=== PATIENT | female | born 1980 | race Caucasian/White ===

== ENCOUNTER → 2017-11-12 | Outpatient (CLI) | payer OTHER ==
--- NOTE | 2017-11-23 11:16 | MR ---
EXAMINATION TYPE: MR brain wo con DATE OF EXAM: 11/12/2017 COMPARISON: Prior outside MRI brain October 11, 2013 HISTORY: Patient has hx of vestibular schwannoma, increased vertigo TECHNIQUE: Multiplanar, multisequence imaging of the brain and brainstem is performed without IV cont rast. Dedicated IAC imaging is also performed. FINDINGS: Diffusion weighted images demonstrate no evidence of a recent infarct or other diffusion abnormality. There is no extraaxial fluid collection or significant white matter signal abnormality. The ventricu lar system and cisternal spaces are normal in size and appearance. The brain volume is age appropria te. Midline structures demonstrate normal morphology. The craniocervical junction appears within normal limits. Normal vascular flow voids are present. Nasal septum remains deviated to right of midline. Th e paranasal sinuses are clear. The globes are intact bilaterally. No suspicious fluid signal seen in mastoid air cells bilaterally. Vestibulocochlear complexes show sl ight asymmetry involving the left vestibular portion included semicircular canals, this is at site of prior enhancing neoplasm. Suspect interval surgical resection. Subtle increased FLAIR signal in the vestibular portion is noted axial image 8 less well seen on dedicated IAC imaging. IMPRESSION: Suboptimal study without IV contrast. Advise repeat imaging with IV contrast to rule out recurrent enhancing schwannoma or neoplasm.
== END | disposition home or self-care (01) ==
LOC: RADMRIMAIN 09:40 → MERGE 09:45
PROVIDERS: ATTEND Family Medicine
DX: D33.3 Benign neoplasm of cranial nerves (principal)
CPT/HCPCS: 70551

== ENCOUNTER → 2019-04-04 | Outpatient (CLI) | payer OTHER ==
--- NOTE | 2019-04-21 14:06 | MM ---
Reason for exam: screening (asymptomatic). Last mammogram was performed 4 years and 2 months ago. History: Family history of breast cancer in maternal grandmother. Took hormonal contraceptives for 6 years. Physical Findings: A clinical breast exam by your physician is recommended on an annual basis and results should be correlated with mammographic findings. MG Screening Mammo w CAD Bilateral CC and MLO view(s) were taken. Prior study comparison: January 29, 2015, mammogram, performed at [facility]. The breast tissue is heterogeneously dense. This may lower the sensitivity of mammography. There is chronic nodularity in the right upper aspect. There is no discrete abnormality. ASSESSMENT: Negative, BI-RAD 1 RECOMMENDATION: Routine screening mammogram of both breasts in 1 year.
== END | disposition home or self-care (01) ==
LOC: RADMAMWWP 08:22
PROVIDERS: ATTEND Family Medicine
DX: Z12.31 Encounter for screening mammogram for malignant neoplasm of breast (principal)
CPT/HCPCS: 77067

== ENCOUNTER 2020-02-24 11:53 | Emergency (ER) | payer OTHER ==
[2020-02-24 12:06] VITALS: BP 122/77; PULSE 72; RESP 18; TEMP 98.8
--- NOTE | 2020-02-24 12:33 | ED ---
General Adult HPI - General Chief complaint: Upper Respiratory Infection Stated complaint: chest heaviness/headaches Time Seen by Provider: 02/24/20 12:16 Source: patient Mode of arrival: ambulatory Limitations: no limitations - History of Present Illness Initial comments: Patient is a 39-year-old female presenting to the emergency department with chief complaint of some shortness of breath. Patient states this started yesterday after she was exposed to a Covid-positive patient 2 days ago. Patient reports this likely is c covid-19d. Patient states she is under quarantine. She is also asthmatic and does take Advair daily along with albuterol inhaler when necessary. She is also reporting and a productive cough. Patient states she is having some upper respiratory like symptoms along with sinus congestion or rhinorrhea. She is reporting generalized body aches. States that she is looking to get a Covid test only. - Related Data Allergies Allergy/AdvReac Type Severity Reaction Status Date / Time fluconazole [From Diflucan] Allergy Rash/Hives Verified 02/24/20 12:06 Sulfa (Sulfonamide Allergy Rash/Hives Verified 02/24/20 12:06 Antibiotics) Review of Systems ROS Statement: Those systems with pertinent positive or pertinent negative responses have been documented in the HPI. ROS Other: All systems not noted in ROS Statement are negative. Past Medical History Past Medical History: Asthma, Thyroid Disorder History of Any Multi-Drug Resistant Organisms: None Reported Past Surgical History: Appendectomy, Section Additional Past Surgical History / Comment(s): thyroid. Past Psychological History: ADD/ADHD, Depression Smoking Status: Former smoker Past Alcohol Use History: Occasional Past Drug Use History: IV Drug Use General Exam Limitations: no limitations General appearance: alert, in no apparent distress, obese Head exam: Present: atraumatic, normocephalic, normal inspection Eye exam: Present: normal appearance, PERRL, EOMI Pupils: Present: normal accommodation ENT exam: Present: normal exam, normal oropharynx, mucous membranes moist, TM's normal bilaterally, normal external ear exam Neck exam: Present: normal inspection, full ROM. Absent: tenderness Respiratory exam: Present: normal lung sounds bilaterally. Absent: respiratory distress, wheezes, rales, rhonchi, stridor, chest wall tenderness, accessory muscle use, decreased breath sounds, prolonged expiratory Cardiovascular Exam: Present: regular rate, normal rhythm, normal heart sounds. Absent: bradycardia, tachycardia, irregular rhythm Extremities exam: Present: normal inspection, full ROM, normal capillary refill, other (+2 ulnar radial pulses bilateral.). Absent: tenderness, pedal edema, joint swelling, calf tenderness Back exam: Present: normal inspection, full ROM. Absent: tenderness, CVA tenderness (R), CVA tenderness (L) Neurological exam: Present: alert, oriented X3, normal gait Psychiatric exam: Present: normal affect, normal mood. Absent: depressed, agitated Skin exam: Present: warm, dry, intact, normal color Course Vital Signs 02/24/20 12:00 Temperature 98.8 F Pulse Rate 72 Respiratory 18 Rate Blood Pressure 122/77 O2 Sat by Pulse 98 Oximetry Medical Decision Making - Medical Decision Making 39-year-old male presenting to emergency with chief complaint of shortness of breath and physical examination, patient is not in any respiratory distress. Lungs are clear to auscultation. Vitals within normal limits. Patient is only requesting a Covid test. She was advised self isolate until she received the results of the testing. Patient was offered additional imaging or laboratory work, she declined. Patient was advised to take Tylenol only. Does fever. Strict return parameters were thoroughly discussed patient is an attending agreeable. Case discussed physician. Disposition Clinical Impression: Respiratory infection, Cough Disposition: HOME SELF-CARE Condition: Stable Instructions (If sedation given, give patient instructions): Upper Respiratory Infection (ED) Additional Instructions: Self isolate and take Tylenol only a few develop a fever. Drink plenty of fluids with electrolytes. Follow with her primary care physician. Return to emergency department if symptoms worsen. Is patient prescribed a controlled substance at d/c from ED?: No Referrals: Rohan Lepe DO [Primary Care Provider] - 1-2 days Time of Disposition: 12:33
== END 2020-02-24 12:52 | disposition home or self-care (01) ==
LOC: EC 11:53
DX: J98.8 Other specified respiratory disorders (principal); R05 Cough; Z20.828 Contact with and (suspected) exposure to other viral communicable diseases; Z88.2 Allergy status to sulfonamides; Z88.8 Allergy status to other drugs, medicaments and biological substances
CPT/HCPCS: 99284; U0003

== ENCOUNTER → 2020-06-06 | Outpatient (CLI) | payer OTHER ==
--- NOTE | 2020-06-07 11:49 | MM ---
Reason for exam: screening (asymptomatic). Last mammogram was performed 1 year and 2 months ago. History: Family history of breast cancer in maternal grandmother. Took hormonal contraceptives for 6 years. Physical Findings: A clinical breast exam by your physician is recommended on an annual basis and results should be correlated with mammographic findings. MG Screening Mammo w CAD Bilateral CC and MLO view(s) were taken. Prior study comparison: April 04, 2019, bilateral MG screening mammo w CAD. January 29, 2015, mammogram, performed at [facility]. The breast tissue is heterogeneously dense. This may lower the sensitivity of mammography. Focal asymmetry upper outer right breast posterior third position. This finding is changed when compared with previous exams. ASSESSMENT: Incomplete: need additional imaging evaluation, BI-RAD 0 RECOMMENDATION: Special view mammogram of the right breast. If lesion persists on supplemental views, image directed ultrasound is recommended. [facility] will attempt to contact patient to return for supplemental views and ultrasound if indicated.
== END | disposition home or self-care (01) ==
LOC: RADMAMWWP 07:07
PROVIDERS: ATTEND Obstetrics & Gynecology
DX: Z12.31 Encounter for screening mammogram for malignant neoplasm of breast (principal); R92.8 Other abnormal and inconclusive findings on diagnostic imaging of breast
CPT/HCPCS: 77067

== ENCOUNTER → 2020-06-11 | Outpatient (CLI) | payer OTHER ==
--- NOTE | 2020-06-11 09:48 | MM ---
Reason for exam: additional evaluation requested from abnormal screening. Last mammogram was performed less than 1 month ago. History: Family history of breast cancer in maternal grandmother. Took hormonal contraceptives for 6 years. Physical Findings: Nurse did not find any significant physical abnormalities on exam. MG Work Up Mamm w CAD RT Spot compression CC, spot compression MLO, and LM view(s) were taken of the right breast. Prior study comparison: June 06, 2020, bilateral MG screening mammo w CAD. April 04, 2019, bilateral MG screening mammo w CAD. The breast tissue is heterogeneously dense. This may lower the sensitivity of mammography. There is no discrete abnormality including area of concern. Marked for pain. Marker at area of pain right upper outer quadrant. On compression, area disperses. These results were verbally communicated with the patient and result sheet given to the patient on 06/11/20. ASSESSMENT: Probably benign, BI-RAD 3 RECOMMENDATION: Follow-up diagnostic mammogram of the right breast in 6 months.
== END ==
LOC: RADMAMWWP 07:21
PROVIDERS: ATTEND Obstetrics & Gynecology
DX: R92.2 Inconclusive mammogram (principal); Z80.3 Family history of malignant neoplasm of breast
CPT/HCPCS: 77065

== ENCOUNTER → 2021-01-29 | Outpatient (CLI) | payer OTHER ==
--- NOTE | 2021-01-29 10:49 | MM ---
Reason for exam: follow-up at short interval from prior study. Last mammogram was performed 8 months ago. History: Family history of breast cancer in maternal grandmother. Took hormonal contraceptives for 6 years. Physical Findings: Nurse did not find any significant physical abnormalities on exam. MG Diagnostic Mammo RT w CAD CC and MLO view(s) were taken of the right breast. Prior study comparison: June 11, 2020, right breast MG work up mamm w CAD RT. June 06, 2020, bilateral MG screening mammo w CAD. The breast tissue is heterogeneously dense. This may lower the sensitivity of mammography. There is no discrete abnormality including area of concern. These results were verbally communicated with the patient and result sheet given to the patient on 01/29/21. ASSESSMENT: Negative, BI-RAD 1 RECOMMENDATION: Return to routine screening mammogram schedule for both breasts. Back on schedule.
== END | disposition home or self-care (01) ==
LOC: RADMAMWWP 09:36
PROVIDERS: ATTEND Obstetrics & Gynecology
DX: R92.2 Inconclusive mammogram (principal); Z80.3 Family history of malignant neoplasm of breast
CPT/HCPCS: 77065

== ENCOUNTER 2021-11-07 02:56 | Emergency (ER) | payer OTHER ==
[2021-11-07 03:06] VITALS: BP 102/72; PULSE 62; RESP 20; TEMP 98.4
[2021-11-07] MEDS ORDERED: LIDOCAINE 1% INJ 10MG/ML (5 ML VIAL-PF) SQ ONE (03:17)
--- NOTE | 2021-11-07 03:18 | ED ---
Wound/Laceration HPI - General Chief Complaint: Extremity Injury, Lower Stated Complaint: Fall Time Seen by Provider: 11/07/21 03:07 Source: patient, family, RN notes reviewed Mode of arrival: ambulatory Limitations: no limitations - History of Present Illness Initial Comments: This is a 41-year-old female who presents to the emergency department for a l aceration to the right lower leg. Patient states that she was sleepwalking and proceeded to trip over a window air conditioning unit that was on the floor. Her tetanus status is up-to-date, receiving it less than 5 years ago. Denies any fevers, chills, sore throat, cough, dyspnea, chest pain, palpitations, abdominal pain, nausea, vomiting, diarrhea, back pain, or headaches. Place: home Patient Tetanus UTD: Yes Context: accidental Treatments Prior to Arrival: bandage - Related Data Allergies Allergy/AdvReac Type Severity Reaction Status Date / Time fluconazole [From Diflucan] Allergy Rash/Hives Verified 11/07/21 03:05 Sulfa (Sulfonamide Allergy Rash/Hives Verified 11/07/21 03:05 Antibiotics) Review of Systems ROS Statement: Those systems with pertinent positive or pertinent negative responses have been documented in the HPI. ROS Other: All systems not noted in ROS Statement are negative. Past Medical History Past Medical History: Asthma, Thyroid Disorder History of Any Multi-Drug Resistant Organisms: None Reported Past Surgical History: Appendectomy, Section Additional Past Surgical History / Comment(s): thyroid. Past Psychological History: ADD/ADHD, Anxiety, Depression Smoking Status: Former smoker Past Alcohol Use History: Occasional Past Drug Use History: IV Drug Use General Exam Limitations: no limitations General appearance: alert, in no apparent distress Head exam: Present: atraumatic, normocephalic, normal inspection Respiratory exam: Present: normal lung sounds bilaterally. Absent: respiratory distress, wheezes, rales, rhonchi, stridor Cardiovascular Exam: Present: regular rate, normal rhythm, normal heart sounds. Absent: systolic murmur, diastolic murmur, rubs, gallop, clicks Neurological exam: Present: alert, oriented X3, CN II-XII intact Psychiatric exam: Present: normal affect, normal mood Skin exam: Present: other (5 cm diagonal laceration just superior to the ant erior aspect of the right ankle. Active bleeding. Visible subcutaneous tissue.) Course Vital Signs 11/07/21 03:00 Temperature 98.4 F Pulse Rate 62 Respiratory 20 Rate Blood Pressure 102/72 O2 Sat by Pulse 98 Oximetry Procedures - Laceration Laceration #1 Consent Obtained: verbal consent Indication: laceration Site: lower extremity Size (cm): 5 Description: linear Depth: simple, single layer Anesthetic Used: lidocaine 1% Anesthesia Technique: local infiltration Amount (mls): 2 Pre-repair: wound explored, irrigated extensively Type of Sutures: nylon Size of Sutures: 4-0 Number of Sutures: 5 Technique: simple, interrupted Medical Decision Making - Medical Decision Making This is a 41-year-old female who presents to the emergency department for a laceration to the right ankle. Patient's tetanus status is up-to-date. The laceration was repaired with sutures. She is instructed to return for suture removal in 7-10 days. She can alternate with Tylenol and ibuprofen as needed for pain relief. Return precautions reviewed in depth, the patient is instructed to return to the emergency department with any new, worsening, or concerning symptoms. Patient verbalized understanding. This case was discussed in detail with the attending ED physician. Presentation, findings, and treatment plan discussed in detail as well. Disposition Clinical Impression: Laceration Disposition: HOME SELF-CARE Instructions (If sedation given, give patient instructions): Care For Your Stitches (ED) Additional Instructions: Return to the emergency department with any new, worsening, or concerning symptoms and in 7-10 days for suture removal. Alternate with Tylenol and ibuprofen as needed for pain relief. Is patient prescribed a controlled substance at d/c from ED?: No Referrals: Rohan Lepe DO [Primary Care Provider] - 1-2 days
== END 2021-11-07 03:55 | disposition home or self-care (01) ==
LOC: EC 02:56
DX: S91.011A Laceration without foreign body, right ankle, initial encounter (principal); J45.909 Unspecified asthma, uncomplicated; Z87.891 Personal history of nicotine dependence; Z88.2 Allergy status to sulfonamides; F51.3 Sleepwalking [somnambulism]; W18.09XA Striking against other object with subsequent fall, initial encounter; Y93.01 Activity, walking, marching and hiking; Y92.009 Unspecified place in unspecified non-institutional (private) residence as the place of occurrence of the external cause
CPT/HCPCS: 99283; 12002; J2001

== ENCOUNTER → 2023-11-09 | Outpatient (CLI) | payer BC, OTHER ==
--- NOTE | 2023-11-09 10:41 | MM ---
Reason for Exam: Screening (asymptomatic). Last mammogram was performed 3 year(s) and 5 month(s) ago. Patient History: Menarche at age 8. First Full-Term at age 25. Hysterectomy at age 31. Patient has history of breast feeding. Patient used Hormonal Contraceptives for 6 years. Maternal grandmother had breast cancer. Risk Values: Ashanti 5 year model risk: 1.0%. NCI Lifetime model risk: 11.6%. Prior Study Comparison: 06/06/2020 Bilateral Screening Mammogram, [facility]. 06/11/2020 Right Diagnostic Mammogram, [facility]. 01/29/2021 Right Diagnostic Mammogram, [facility]. Tissue Density: The breasts are heterogeneously dense, which may obscure small masses. Findings: Analyzed By CAD. There is no suspicious group of microcalcifications or new suspicious mass in either breast. Overall Assessment: Benign, BI-RAD 2 Management: Screening Mammogram of both breasts in 1 year. . Patient should continue monthly self-breast exams. A clinical breast exam by your physician is recommended on an annual basis. This exam should not preclude additional follow-up of suspicious palpable abnormalities. Note on Ashanti scores and lifetime risk: 1. A Ashanti score greater than 3% is considered moderate risk. If this is the case, consider specialist referral to assess eligibility for a risk reducing agent. 2. If overall lifetime risk for the development of breast cancer is 20% or higher, the patient may qualify for future screening with alternating mammogram and breast MRI. Electronically signed and approved by: Gumaro Natarajan M.D. Radiolog[facility]
== END | disposition home or self-care (01) ==
LOC: RADMAMWWP 07:01
PROVIDERS: ATTEND Family Medicine
DX: Z12.31 Encounter for screening mammogram for malignant neoplasm of breast (principal); R92.333 Mammographic heterogeneous density, bilateral breasts; Z80.3 Family history of malignant neoplasm of breast
CPT/HCPCS: 77067